=== PATIENT | male | born 1990 | race Two or more races ===

== ENCOUNTER 2017-01-29 21:52 | Inpatient (IN) | payer OTHER ==
[~2017-01-29] VITALS: Ht 170.2 cm; Wt 59.9 kg
[~2017-01-29 21:52] MED LIST: NKM
[2017-01-29 21:55] VITALS: BP 142/93
[2017-01-29] MEDS ORDERED: levETIRAcetam 500 MG in D5W 110 ML IVPB ONE (22:00)
[2017-01-29] MEDS ORDERED: levETIRAcetam 500mg vial IV ONE (22:06)
[2017-01-29] MEDS ORDERED: KEPPRA500 M4 ORAL (22:13)
--- NOTE | 2017-01-29 22:14 | Emergency Room Report ---
History of Present Illness General Chief Complaint: Seizure Source: Patient Present Illness HPI This is a 26-year-old male presents with chief complaint of seizure. Witnessed by roommate. Lasted only a few minutes. He is no longer post ictal. No oral trauma. No incontinence of bowel or urine. He had a similar symptom 2 weeks ago when he did have or trauma. He was seen at [facility] in [place]. Since then he had workup with a neurologist ritchie Swann. He had CT scan, MRI, and EEG. All were negative. Tonight he had a one to 2 minute tonic-clonic seizure activity. Witnessed by his roommate. I spoke with her on the phone. She said that there were loud noises in his room. She found on the floor. He had foaming at the mouth with a bit of blood tinge. He was confused for about 5 minutes afterward. Afterward he is back to baseline. Allergies: Coded Allergies: No Known Allergies (Unverified , 01/29/17) Patient History Past Medical History: see triage record, old chart reviewed Past Surgical History: none Pertinent Family History: none Social History: Denies: smoking Immunizations: other Reviewed Nursing Documentation: PMH: Agreed, PSxH: Agreed Nursing Documentation-PMH Past Medical History: No Stated History Review of Systems Eye: Denies: blurred vision, eye pain ENT: Denies: ear pain, nose congestion, throat swelling Respiratory: Denies: cough, shortness of breath Cardiovascular: Denies: chest pain, palpitations Gastrointestinal: Denies: abdominal pain, diarrhea, nausea, vomiting Musculoskeletal: Denies: back pain, joint pain Skin: Denies: rash Neurological: Denies: headache, numbness Endocrine: Denies: increased thirst, increased urine Hematologic/Lymphatic: Denies: easy bruising All Other Systems: negative except mentioned in HPI Physical Exam Vital Signs Date Time Temp Pulse Resp B/P Pulse Ox O2 Delivery O2 Flow Rate FiO2 01/29/17 21:43 98.6 124 18 142/93 94 Room Air vitals normal Sp02 EP Interpretation: reviewed, normal General Appearance: well appearing, no apparent distress, alert Head: normocephalic, atraumatic Eyes: bilateral eye EOMI, bilateral eye PERRL ENT: hearing grossly normal, normal pharynx Neck: full range of motion, supple, no meningismus Respiratory: chest non-tender, lungs clear, normal breath sounds Cardiovascular #1: regular rate, rhythm, no murmur Gastrointestinal: normal bowel sounds, non tender, no mass, no organomegaly, no bruit, non-distended Musculoskeletal: back normal, gait/station normal, normal range of motion, other - Small abrasion to right elbow Psychiatric: mood/affect normal Skin: warm/dry Medical Decision Making Diagnostic Impression: Primary Impression: Epileptic seizure, generalized ER Course Patient with seizure. This is his second episode within a couple weeks. We'll then put on antiepileptic medication. I see no need to repeat workup see security have done. We'll discharge home. He is already on driving restriction from his neurologist. Last Vital Signs Date Time Temp Pulse Resp B/P Pulse Ox O2 Delivery O2 Flow Rate FiO2 01/29/17 21:43 98.6 124 18 142/93 94 Room Air Status: improved Disposition: HOME, SELF-CARE Condition: Stable Scripts Levetiracetam (KEPPRA) 500 Mg Tablet 500 MG ORAL EVERY 12 HOURS, #60 TAB 0 Refills Prov: ARTUR MENON M.D. 01/29/17 Patient Instructions: Seizure, Adult Additional Instructions: Followup with your neurologist within a week. Return if symptom worsen. You cannot drive because of the seizure activity. Only your neurologist can clear you to drive. ARTUR MENON M.D. January 29, 2017 22:14
[2017-01-29] MEDS ORDERED: LORazepam Inj 2mg/ml 1ml ONE (22:52)
[2017-01-29] MEDS ORDERED: LORazepam Inj 2mg/ml 1ml IV ONE (23:00)
[2017-01-29 23:41] LABS: BASOPHILS % (AUTO) 0.9 % (0.0-2.0); EOSINOPHILS % (AUTO) 0.7 % (0.0-3.0); LYMPHOCYTES % (AUTO) 10.4 % (20.0-45.0); MEAN CORPUSCULAR HEMOGLOBIN 31.5 PG (27.0-31.0); MEAN CORPUSCULAR HGB CONC 34.5 G/DL (32.0-36.0); MEAN CORPUSCULAR VOLUME 91 FL (80-99); MEAN PLATELET VOLUME 8.5 FL (6.5-10.1); MONOCYTES % (AUTO) 6.7 % (1.0-10.0); NEUTROPHILS % (AUTO) 81.2 % (45.0-75.0); PLATELET COUNT 309 K/UL (150-450); RED CELL DISTRIBUTION WIDTH 11.1 % (11.6-14.8); WHITE BLOOD COUNT 16.7 K/UL (4.8-10.8)
[2017-01-29] MEDS ORDERED: LORazepam Inj 2mg/ml 1ml IV PRN (23:45)
[2017-01-29] MEDS ORDERED: Zolpidem 5mg tab ORAL PRN (23:45)
[2017-01-29] MEDS ORDERED: Morphine Sulfate 2mg/ml Inj IVP PRN (23:45)
[2017-01-29] MEDS ORDERED: Miralax 17gm pkt ORAL PRN (23:45)
[2017-01-29] MEDS ORDERED: Mylanta II UD 30ml ORAL PRN (23:45)
[2017-01-29 23:55] VITALS: BP 125/85
[2017-01-30 00:02] LABS: ANION GAP 27 (5-15); CARBON DIOXIDE 15 mEQ/L (20-30); CHLORIDE 99 mEQ/L (98-107); CREATININE 1.2 mg/dL (0.7-1.2); GLOMERULAR FILTRATION RATE > 60 mL/min (>60); HEMOLYSIS 8; POTASSIUM 3.7 mEQ/L (3.4-4.9); SODIUM 141 mEQ/L (135-145)
[2017-01-30 00:30] VITALS: BP 119/72
[2017-01-30 07:50] LABS: BASOPHILS % (AUTO) 0.5 % (0.0-2.0); EOSINOPHILS % (AUTO) 0.3 % (0.0-3.0); LYMPHOCYTES % (AUTO) 10.8 % (20.0-45.0); MEAN CORPUSCULAR HEMOGLOBIN 30.9 PG (27.0-31.0); MEAN CORPUSCULAR HGB CONC 33.9 G/DL (32.0-36.0); MEAN CORPUSCULAR VOLUME 91 FL (80-99); MEAN PLATELET VOLUME 8.8 FL (6.5-10.1); MONOCYTES % (AUTO) 9.2 % (1.0-10.0); NEUTROPHILS % (AUTO) 79.3 % (45.0-75.0); PLATELET COUNT 257 K/UL (150-450); RED CELL DISTRIBUTION WIDTH 11.3 % (11.6-14.8)
[2017-01-30 08:00] VITALS: BP 100/59
[2017-01-30 08:12] LABS: ALANINE AMINOTRANSFERASE 9 U/L (3-41); ALBUMIN/GLOBULIN RATIO 1.6 (1.0-2.7); ANION GAP 13 (5-15); ASPARTATE AMINO TRANSFERASE 18 U/L (5-40); CALCIUM 8.9 mg/dL (8.6-10.2); CARBON DIOXIDE 24 mEQ/L (20-30); CHLORIDE 103 mEQ/L (98-107); CREATININE 0.8 mg/dL (0.7-1.2); GLOMERULAR FILTRATION RATE > 60 mL/min (>60); HEMOLYSIS 5; POTASSIUM 3.8 mEQ/L (3.4-4.9); SODIUM 140 mEQ/L (135-145); TOTAL PROTEIN 6.2 g/dL (6.6-8.7)
[2017-01-30] MEDS: Heparin 5000 units/ml inj SUBQ SCH ×2 (09:06→20:41)
--- NOTE | 2017-01-30 10:00 | History and Physical ---
History of Present Illness General Date patient seen: January 30, 2017 Reason for Hospitalization: Seizure Present Illness HPI 26-year-old male presents with chief complaint of seizure lasting only a few minutes. He had a similar symptom 2 weeks ago when he did have or trauma. He was seen at [facility] in [place]. He had CT scan, MRI, and EEG. All were negative. last night he had a one to 2 minute tonic-clonic seizure activity. then in ER he had another episode. Allergies: Coded Allergies: No Known Allergies (Unverified , 01/29/17) Medication History Scheduled Levetiracetam (Keppra), 500 MG ORAL EVERY 12 HOURS No Known Medications* (NKM - No Known Medications*), 0 ., (Reported) Patient History Healthcare decision maker Resuscitation status Full Code Advanced Directive on File Past Medical/Surgical History Past Medical/Surgical History: (1) Epileptic seizure, generalized Review of Systems All Other Systems: negative except mentioned in HPI Physical Exam General Appearance: WD/WN, no apparent distress Lines, tubes and drains: peripheral HEENT: normocephalic, atraumatic Neck: non-tender, normal alignment Respiratory/Chest: chest wall non-tender, lungs clear Breasts: no masses Cardiovascular/Chest: normal peripheral pulses Abdomen: normal bowel sounds, non tender Genitourinary/Rectal: normal genital exam Extremities: normal range of motion Last 24 Hour Vital Signs Date Time Temp Pulse Resp B/P Pulse Ox O2 Delivery O2 Flow Rate FiO2 01/30/17 08:00 97.7 69 19 100/59 96 Room Air 01/30/17 04:22 74 01/30/17 00:30 98.6 99 13 119/72 94 Room Air 01/30/17 00:30 98.6 99 13 119/72 94 Room Air 01/29/17 23:55 98.6 102 20 125/85 94 Room Air 01/29/17 21:55 98.6 97 18 142/93 94 Room Air 01/29/17 21:55 97 18 Room Air 01/29/17 21:43 98.6 124 18 142/93 94 Room Air Intake and Output 01/29/17 01/30/17 19:00 07:00 Intake Total 0 ml Balance 0 ml Intake Other 0 ml Laboratory Tests Test 01/29/17 23:31 01/30/17 06:40 White Blood Count 16.7 K/UL (4.8-10.8) H 12.0 K/UL (4.8-10.8) H Red Blood Count 5.00 M/UL (4.70-6.10) 4.50 M/UL (4.70-6.10) L Hemoglobin 15.7 G/DL (14.2-18.0) 13.9 G/DL (14.2-18.0) L Hematocrit 45.6 % (42.0-52.0) 41.1 % (42.0-52.0) L Mean Corpuscular Volume 91 FL (80-99) 91 FL (80-99) Mean Corpuscular Hemoglobin 31.5 PG (27.0-31.0) H 30.9 PG (27.0-31.0) Mean Corpuscular Hemoglobin Concent 34.5 G/DL (32.0-36.0) 33.9 G/DL (32.0-36.0) Red Cell Distribution Width 11.1 % (11.6-14.8) L 11.3 % (11.6-14.8) L Platelet Count 309 K/UL (150-450) 257 K/UL (150-450) Mean Platelet Volume 8.5 FL (6.5-10.1) 8.8 FL (6.5-10.1) Neutrophils (%) (Auto) 81.2 % (45.0-75.0) H 79.3 % (45.0-75.0) H Lymphocytes (%) (Auto) 10.4 % (20.0-45.0) L 10.8 % (20.0-45.0) L Monocytes (%) (Auto) 6.7 % (1.0-10.0) 9.2 % (1.0-10.0) Eosinophils (%) (Auto) 0.7 % (0.0-3.0) 0.3 % (0.0-3.0) Basophils (%) (Auto) 0.9 % (0.0-2.0) 0.5 % (0.0-2.0) Sodium Level 141 mEQ/L (135-145) 140 mEQ/L (135-145) Potassium Level 3.7 mEQ/L (3.4-4.9) 3.8 mEQ/L (3.4-4.9) Chloride Level 99 mEQ/L (98-107) 103 mEQ/L (98-107) Carbon Dioxide Level 15 mEQ/L (20-30) L 24 mEQ/L (20-30) Anion Gap 27 (5-15) H 13 (5-15) Blood Urea Nitrogen 13 mg/dL (7-23) 11 mg/dL (7-23) Creatinine 1.2 mg/dL (0.7-1.2) 0.8 mg/dL (0.7-1.2) Estimat Glomerular Filtration Rate > 60 mL/min (>60) > 60 mL/min (>60) Glucose Level 119 mg/dL (74-106) H 97 mg/dL (74-106) Calcium Level 9.0 mg/dL (8.6-10.2) 8.9 mg/dL (8.6-10.2) Total Bilirubin 0.6 mg/dL (0.0-1.2) Aspartate Amino Transf (AST/SGOT) 18 U/L (5-40) Alanine Aminotransferase (ALT/SGPT) 9 U/L (3-41) Alkaline Phosphatase 73 U/L (40-129) Total Protein 6.2 g/dL (6.6-8.7) L Albumin 3.9 g/dL (3.5-5.2) Globulin 2.3 g/dL Albumin/Globulin Ratio 1.6 (1.0-2.7) Height (Feet): 5 Height (Inches): 7.00 Weight (Pounds): 132 Medications Current Medications Medications (Trade) Dose Ordered Sig/David Route PRN Reason Start Time Stop Time Status Last Admin Dose Admin Acetaminophen (Tylenol) 650 mg Q4H PRN ORAL fever 01/29/17 23:45 02/28/17 23:44 Al Hydroxide/Mg Hydroxide (Mylanta II) 30 ml Q6H PRN ORAL dyspepsia 01/29/17 23:45 02/28/17 23:44 Dextrose (Dextrose 50%) STAT PRN IV Hypoglycemia 01/29/17 23:45 02/28/17 23:44 Heparin Sodium (Porcine) (Heparin 5000 units/ml) 5,000 units EVERY 12 HOURS SUBQ 01/30/17 09:00 03/01/17 08:59 01/30/17 09:06 Levetiracetam (Keppra) 500 mg EVERY 12 HOURS ORAL 01/30/17 09:00 03/01/17 08:59 01/30/17 09:04 Lorazepam (Ativan 2mg/ml 1ml) 2 mg EVERY HOUR PRN IV seizures 01/29/17 23:45 02/05/17 23:44 Morphine Sulfate (Morphine Sulfate) 1 mg EVERY 4 HOURS PRN IVP For Pain 01/29/17 23:45 02/05/17 23:44 Ondansetron HCl (Zofran) 4 mg Q6H PRN IVP Nausea & Vomiting 01/29/17 23:45 02/28/17 23:44 Polyethylene Glycol (Miralax) 17 gm HSPRN PRN ORAL Constipation 01/29/17 23:45 02/28/17 23:44 Zolpidem Tartrate (Ambien) 5 mg HSPRN PRN ORAL Insomnia 01/29/17 23:45 02/28/17 23:44 Assessment/Plan Problem List: (1) Epileptic seizure, generalized ICD Codes: G40.309 - Generalized idiopathic epilepsy and epileptic syndromes, not intractable, without status epilepticus SNOMED: [id number] Assessment/Plan Neuro evaluation keep telemetry can be discharged when neuro agrees. VAL ROJAS January 30, 2017 09:59
[2017-01-30 12:00] VITALS: BP 108/66
[2017-01-30 13:39] LABS: APPEARANCE,URINE SLIGHTLY CLOUDY; KETONES,URINE NEGATIVE (NEGATIVE); LEUKOCYTE ESTERASE ,URINE NEGATIVE (NEGATIVE); NITRITE,URINE NEGATIVE (NEGATIVE); PH,URINE 5 (4.5-8.0); PROTEIN,URINE NEGATIVE (NEGATIVE); UROBILINOGEN,URINE NORMAL MG/DL (0.0-1.0)
[2017-01-30 14:26] LABS: BACTERIA,URINE OCCASIONAL /HPF; RBC,URINE 0-2 /HPF (0 - 0); SQUAMOUS EPITHELIAL CELL,UR OCCASIONAL /LPF (NONE/OCC); URIC ACID CRYSTALS,URINE MANY /LPF; WBC,URINE 0-2 /HPF (0 - 0)
[2017-01-30 16:00] VITALS: BP 118/71
--- NOTE | 2017-01-30 16:44 | Neurology Progress Note ---
Objective Physical Exam Last Vital Signs Date Time Temp Pulse Resp B/P Pulse Ox O2 Delivery O2 Flow Rate FiO2 01/30/17 16:00 96.0 79 19 118/71 97 Room Air Laboratory Tests Test 01/29/17 23:31 01/30/17 06:40 01/30/17 13:17 White Blood Count 16.7 K/UL (4.8-10.8) H 12.0 K/UL (4.8-10.8) H Red Blood Count 5.00 M/UL (4.70-6.10) 4.50 M/UL (4.70-6.10) L Hemoglobin 15.7 G/DL (14.2-18.0) 13.9 G/DL (14.2-18.0) L Hematocrit 45.6 % (42.0-52.0) 41.1 % (42.0-52.0) L Mean Corpuscular Volume 91 FL (80-99) 91 FL (80-99) Mean Corpuscular Hemoglobin 31.5 PG (27.0-31.0) H 30.9 PG (27.0-31.0) Mean Corpuscular Hemoglobin Concent 34.5 G/DL (32.0-36.0) 33.9 G/DL (32.0-36.0) Red Cell Distribution Width 11.1 % (11.6-14.8) L 11.3 % (11.6-14.8) L Platelet Count 309 K/UL (150-450) 257 K/UL (150-450) Mean Platelet Volume 8.5 FL (6.5-10.1) 8.8 FL (6.5-10.1) Neutrophils (%) (Auto) 81.2 % (45.0-75.0) H 79.3 % (45.0-75.0) H Lymphocytes (%) (Auto) 10.4 % (20.0-45.0) L 10.8 % (20.0-45.0) L Monocytes (%) (Auto) 6.7 % (1.0-10.0) 9.2 % (1.0-10.0) Eosinophils (%) (Auto) 0.7 % (0.0-3.0) 0.3 % (0.0-3.0) Basophils (%) (Auto) 0.9 % (0.0-2.0) 0.5 % (0.0-2.0) Sodium Level 141 mEQ/L (135-145) 140 mEQ/L (135-145) Potassium Level 3.7 mEQ/L (3.4-4.9) 3.8 mEQ/L (3.4-4.9) Chloride Level 99 mEQ/L (98-107) 103 mEQ/L (98-107) Carbon Dioxide Level 15 mEQ/L (20-30) L 24 mEQ/L (20-30) Anion Gap 27 (5-15) H 13 (5-15) Blood Urea Nitrogen 13 mg/dL (7-23) 11 mg/dL (7-23) Creatinine 1.2 mg/dL (0.7-1.2) 0.8 mg/dL (0.7-1.2) Estimat Glomerular Filtration Rate > 60 mL/min (>60) > 60 mL/min (>60) Glucose Level 119 mg/dL (74-106) H 97 mg/dL (74-106) Calcium Level 9.0 mg/dL (8.6-10.2) 8.9 mg/dL (8.6-10.2) Total Bilirubin 0.6 mg/dL (0.0-1.2) Aspartate Amino Transf (AST/SGOT) 18 U/L (5-40) Alanine Aminotransferase (ALT/SGPT) 9 U/L (3-41) Alkaline Phosphatase 73 U/L (40-129) Total Protein 6.2 g/dL (6.6-8.7) L Albumin 3.9 g/dL (3.5-5.2) Globulin 2.3 g/dL Albumin/Globulin Ratio 1.6 (1.0-2.7) Urine Color Pale yellow Urine Appearance Slightly cloudy Urine pH 5 (4.5-8.0) Urine Specific [place] 1.020 (1.005-1.035) Urine Protein Negative (NEGATIVE) Urine Glucose (UA) Negative (NEGATIVE) Urine Ketones Negative (NEGATIVE) Urine Occult Blood Negative (NEGATIVE) Urine Nitrite Negative (NEGATIVE) Urine Bilirubin Negative (NEGATIVE) Urine Urobilinogen Normal MG/DL (0.0-1.0) Urine Leukocyte Esterase Negative (NEGATIVE) Urine RBC 0-2 /HPF (0 - 0) H Urine WBC 0-2 /HPF (0 - 0) Urine Squamous Epithelial Cells Occasional /LPF Urine Uric Acid Crystals Many /LPF (NONE) H Urine Bacteria Occasional /HPF (NONE) Urine Opiates Screen Negative (NEGATIVE) Urine Barbiturates Screen Negative (NEGATIVE) Phencyclidine (PCP) Screen Negative (NEGATIVE) Urine Amphetamines Screen Negative (NEGATIVE) Urine Benzodiazepines Screen Negative (NEGATIVE) Urine Cocaine Screen Negative (NEGATIVE) Urine Marijuana (THC) Screen Negative (NEGATIVE) Impression/Recommendations Problems: (1) Epileptic seizure, generalized Status: stable Recommendations #[id number] JANIA LAMBERT January 30, 2017 16:44
[2017-01-30 20:00] VITALS: BP_SYST 126; BP_SYST 138; BP_DIAS 82; BP_DIAS 88
[2017-01-31] VITALS: BP_SYST 107; BP_SYST 65; BP_DIAS 65; BP_DIAS 88
--- NOTE | 2017-01-31 02:45 | Consultation ---
DATE OF CONSULTATION: 01/30/2017 NEUROLOGICAL CONSULTATION REFERRING PHYSICIAN: Tiffany Sarmiento M.D. HISTORY OF PRESENT ILLNESS: This is a 26-year-old male who is seen in neurological consultation to evaluate new onset of seizure disorder. According to the patient as well as from medical records, we know that about three weeks ago he had a witnessed generalized clonic-tonic seizure episode preceded by being in distress, anxious, tired from work, poor sleep, and not having lunch for few days. He was taken to [facility] Emergency Department where he was seen by a neurologist. CAT scan of the brain, MRI, and EEG were obtained and this was negative, it was felt that the patient had a symptomatic seizure episode and no treatment was initiated. The patient continued to watch his sleep and eating properly. Last night after having a long workday, he came home had shower, had one beer, was lying in bed watching TV when he suddenly developed an odd sensation in his head. At that point, he developed a new episode of generalized clonic-tonic seizure, which was witnessed by the roommate. He described, he was lying on the floor, foaming from his mouth, biting his tongue, and with postictal confusion for three to five minutes. He was brought to emergency room. His vital signs included blood pressure 142/92 and temperature 98.2. His initial laboratory work included CBC study with WBC 16.7. Toxicology panel negative. Urinalysis unremarkable. Chemistry panel, anion gap of 27, otherwise normal study. While under observation, the patient was about to be discharged when he developed another episode of tonic-clonic seizure, which was witnessed by nursing staff, by nurses, and attending physician. The patient was given Ativan, which stopped the seizure but he continued to be in postictal state. EKG was normal sinus rhythm. No ST elevation, heart rate was 102. The patient was started on Keppra 500 mg b.i.d. PAST MEDICAL HISTORY: The patient has no major medical problems. He is not on any treatment. SOCIAL HISTORY: Working at a [employer], 9-10 hours a day, 5 days a week. Likes to have 1 to 2 beers per night. He is a nonsmoker. In the past, he used marijuana and cocaine, but not for the last few months. He likes to run. He goes to gym. FAMILY HISTORY: Noncontributory. There is no seizure disorder in the family noted. REVIEW OF SYSTEMS: At this time, the patient is feeling well. Fourteen point review of symptom was negative except those in HPI. PHYSICAL EXAMINATION: GENERAL: Well-developed, slim young man not in acute distress. His family and roommate at the bedside. VITAL SIGNS: Stable with blood pressure of 118/71 and temperature 98.4. HEENT: Head is normocephalic. There is no recent trauma. There is a bitten tongue and some scratches on his back region. MUSCULOSKELETAL: Peripheral pulses 1+ symmetric. MENTAL STATUS: The patient is alert and oriented x3. Speech is fluent. Language is intact. No aphasia. No apraxia. Cognitive function normal. CRANIAL NERVE II: Pupils both responding to light and accommodation. Extraocular movements intact. No nystagmus. CRANIAL NERVE V: Normal corneal responses. CRANIAL NERVE VII: No facial asymmetry. Normal hearing. CRANIAL NERVE IX THROUGH XII: Tongue is in midline. Symmetric palate elevation. MOTOR EXAMINATION: Normal muscle tone and strength in all extremities. Deep reflexes 1+ symmetric. SENSORY: Normal in all modalities. Gait is stable. IMPRESSION: New onset of generalized seizure disorder. RECOMMENDATIONS: 1. Continue with Keppra 500 mg b.i.d. 2. No driving, DMV to be notified. 3. Discussed with the patient's trigger factors, encouraged to be compliant with medication. 4. The patient is to avoid working from heights and moving machinery. Thank you for allowing me to see this interesting patient in neurological consultation. Richard Sharp M.D. DR: VIOLET JOB#: [id number] CC:
[2017-01-31 04:30] VITALS: BP 106/57
[2017-01-31 08:00] VITALS: BP 130/70
[2017-01-31 08:37] LABS: BASOPHILS % (AUTO) 1.4 % (0.0-2.0); EOSINOPHILS % (AUTO) 3.1 % (0.0-3.0); LYMPHOCYTES % (AUTO) 25.5 % (20.0-45.0); MEAN CORPUSCULAR HEMOGLOBIN 32.1 PG (27.0-31.0); MEAN CORPUSCULAR HGB CONC 34.8 G/DL (32.0-36.0); MEAN CORPUSCULAR VOLUME 92 FL (80-99); MEAN PLATELET VOLUME 8.8 FL (6.5-10.1); MONOCYTES % (AUTO) 13.7 % (1.0-10.0); NEUTROPHILS % (AUTO) 56.2 % (45.0-75.0); PLATELET COUNT 264 K/UL (150-450); RED BLOOD COUNT 4.77 M/UL (4.70-6.10); RED CELL DISTRIBUTION WIDTH 11.4 % (11.6-14.8); WHITE BLOOD COUNT 6.3 K/UL (4.8-10.8)
[2017-01-31] MEDS: Heparin 5000 units/ml inj SUBQ SCH (08:53)
[2017-01-31 09:17] LABS: ALANINE AMINOTRANSFERASE 9 U/L (3-41); ALBUMIN/GLOBULIN RATIO 1.6 (1.0-2.7); ANION GAP 15 (5-15); ASPARTATE AMINO TRANSFERASE 20 U/L (5-40); CALCIUM 9.4 mg/dL (8.6-10.2); CARBON DIOXIDE 26 mEQ/L (20-30); CHLORIDE 102 mEQ/L (98-107); CREATININE 0.9 mg/dL (0.7-1.2); GLOMERULAR FILTRATION RATE > 60 mL/min (>60); HEMOLYSIS 9; MAGNESIUM 2.1 mg/dL (1.7-2.5); PHOSPHORUS 3.6 mg/dL (2.5-4.8); POTASSIUM 4.1 mEQ/L (3.4-4.9); SODIUM 143 mEQ/L (135-145); TOTAL PROTEIN 6.7 g/dL (6.6-8.7)
--- NOTE | 2017-02-02 08:00 | Cardiology Report ---
APPROVED REPORT EKG Measurement Heart [id number] Sinus tachycardia Otherwise normal ECG
== END 2017-01-31 09:40 | disposition home or self-care (01) | DRG 101 ==
LOC: EDBD 21:52 → EMR 22:02 → 2E 23:20 → EDBEDREQ 23:24 → 2E 01-30 00:30
DX: G40.409 Other generalized epilepsy and epileptic syndromes, not intractable, without status epilepticus (principal)
CPT/HCPCS: 36415; 80048; 80053; 80299; 80300; 81001; 83735; 84100; 85025; 93005; J2405